=== PATIENT | female | born 1980 | race Caucasian/White ===

== ENCOUNTER → 2018-03-31 | Outpatient (CLI) | payer OTHER | LOC: FIMAGING 09:26 → EDBD 09:30 | PROVIDERS: ATTEND Physician Assistant | PROC: CP171ZZ Planar Nuclear Medicine Imaging of Spine and Pelvis using Technetium 99m (Tc-99m) (ICD-10-PCS; principal; 2018-03-31) | DX: M99.04 Segmental and somatic dysfunction of sacral region (principal); G89.29 Other chronic pain | CPT/HCPCS: 78300; A9503 ==